=== PATIENT | male | born 1960 | race Caucasian/White ===

== ENCOUNTER 2017-04-03 07:23 | Emergency (ER) | payer OTHER, BC ==
[~2017-04-03] VITALS: Ht 177.8 cm; Wt 65.8 kg
[~2017-04-03 07:23] MED LIST: BACTRIM DS TAB1 EACH PO; CATAPRES0.1 MG PO; CELEBREX 200 M200 M1 PO; HYDROCODON-ACE1 EAC7 PO; KEFLEX500 MG PO; LISINOPRIL20 MG PO; NORCO 5-325 TA1 EACH PO; PREVACID30 MG PO; VALIUM5 MG PO; XANAX 0.5 MG0.5 MG PO
[2017-04-03] MEDS ORDERED: PROZAC20 MG PO (07:51)
[2017-04-03] MEDS ORDERED: LIPITOR 20 MG T20 M1 PO (07:52)
[2017-04-03] MEDS ORDERED: CYCLOBENZAPRINE5 MG PO (07:52)
[2017-04-03] MEDS ORDERED: OMEPRAZOLE40 MG PO (07:52)
[2017-04-03] MEDS ORDERED: TRAMADOL 50 MG50 MG PO (07:53)
[2017-04-03] MEDS ORDERED: TOPROL XL100 MG PO (07:54)
[2017-04-03] MEDS ORDERED: ALEVE220 MG PO (07:54)
[2017-04-03] MEDS ORDERED: LISINOPRIL-HCT1 EAC1 PO (07:55)
[2017-04-03 09:10] VITALS: BP 106/56
== END 2017-04-03 09:28 | disposition home or self-care (01) ==
LOC: ER 07:23
DX: S09.90XA Unspecified injury of head, initial encounter (principal); I10 Essential (primary) hypertension; F41.9 Anxiety disorder, unspecified; Z98.890 Other specified postprocedural states; F17.210 Nicotine dependence, cigarettes, uncomplicated; F10.99 Alcohol use, unspecified with unspecified alcohol-induced disorder; W22.8XXA Striking against or struck by other objects, initial encounter; Y93.89 Activity, other specified; Y92.89 Other specified places as the place of occurrence of the external cause; Y99.0 Civilian activity done for income or pay

== ENCOUNTER 2017-04-23 13:39 | Emergency (ER) | payer OTHER, BC ==
[~2017-04-23] VITALS: Ht 177.8 cm; Wt 63.5 kg
[~2017-04-23 13:39] MED LIST changes: +ALEVE220 MG PO; +CYCLOBENZAPRINE5 MG PO; +LIPITOR 20 MG T20 M1 PO; +LISINOPRIL-HCT1 EAC1 PO; +OMEPRAZOLE40 MG PO; +PROZAC20 MG PO; +TOPROL XL100 MG PO; +TRAMADOL 50 MG50 MG PO
[2017-04-23 14:40] LABS: ABSOLUTE NEUTROPHILS 5.7 thou/uL (1.4-8.2); BASOPHILS 0.6 % (0.0-2.0); EOSINOPHILS 1.6 % (0.0-3.0); HEMATOCRIT 36.7 % (42.0-52.0); HEMOGLOBIN 12.8 gm/dL (14.0-18.0); LYMPHOCYTES 29.9 % (24.0-44.0); MCH 32.6 pg (26.0-34.0); MCV 93.4 fL (80.0-100.0); PLATELET COUNT 232 thou/uL (150-400); POLYS 60.9 % (36.0-66.0); RBC 3.93 mil/uL (4.50-6.00); WBC 9.4 thou/uL (4.0-11.0)
[2017-04-23 14:45] LABS: CALCIUM 9.5 mg/dL (8.5-10.1); CREATININE 1.8 mg/dL (0.7-1.3); POTASSIUM 5.3 mmol/L (3.5-5.1)
[2017-04-23 14:48] LABS: MANUAL DIFF NO
[2017-04-23] MEDS ORDERED: VALIUM5 MG PO (15:42)
[2017-04-23 16:26] VITALS: BP 117/80
== END 2017-04-23 16:28 | disposition home or self-care (01) ==
LOC: ER 13:39
PROVIDERS: Emergency Medicine
DX: S09.90XA Unspecified injury of head, initial encounter (principal); F41.9 Anxiety disorder, unspecified; E86.0 Dehydration; R11.2 Nausea with vomiting, unspecified; N28.9 Disorder of kidney and ureter, unspecified; I10 Essential (primary) hypertension; F17.210 Nicotine dependence, cigarettes, uncomplicated; F10.99 Alcohol use, unspecified with unspecified alcohol-induced disorder; Z98.890 Other specified postprocedural states; X58.XXXA Exposure to other specified factors, initial encounter; Y93.89 Activity, other specified; Y92.89 Other specified places as the place of occurrence of the external cause; Y99.8 Other external cause status

== ENCOUNTER 2018-03-31 14:55 | Emergency (ER) | payer BC ==
[~2018-03-31] VITALS: Ht 177.8 cm; Wt 72.6 kg
[2018-03-31] MEDS ORDERED: DOXYCYCLINE 10100 MG PO (16:28)
[2018-03-31] MEDS ORDERED: TRAMADOL 50 MG50 MG PO (16:28)
[2018-03-31 16:46] VITALS: BP 169/79
== END 2018-03-31 16:35 | disposition home or self-care (01) ==
LOC: ER 14:55
DX: S80.811A Abrasion, right lower leg, initial encounter (principal); L03.115 Cellulitis of right lower limb; F41.9 Anxiety disorder, unspecified; Z90.49 Acquired absence of other specified parts of digestive tract; F17.210 Nicotine dependence, cigarettes, uncomplicated; W08.XXXA Fall from other furniture, initial encounter; Y93.89 Activity, other specified; Y92.89 Other specified places as the place of occurrence of the external cause; Y99.8 Other external cause status